=== PATIENT | female | born 1960 ===

== ENCOUNTER 2020-12-26 08:59 | Outpatient (CLI) | payer OTHER | END 2020-12-26 09:04 | disposition home or self-care (01) | LOC: NUCLEAR 08:59 | PROVIDERS: ATTEND Specialist | DX: R19.09 Other intra-abdominal and pelvic swelling, mass and lump (principal) | CPT/HCPCS: 78816; A9552 ==

== ENCOUNTER 2021-02-08 13:42 | Outpatient (CLI) | payer OTHER | END 2021-02-08 13:52 | disposition home or self-care (01) | LOC: RAD 13:42 | PROVIDERS: ATTEND Specialist | DX: I10 Essential (primary) hypertension (principal); R10.83 Colic ==

== ENCOUNTER 2021-02-12 08:15 | Inpatient (IN) | payer OTHER ==
[~2021-02-12] VITALS: Ht 162.6 cm; Wt 91.6 kg
[2021-02-13] MEDS ORDERED: DIOVAN160 M1 PO (09:42)
[2021-02-13] MEDS ORDERED: TOPROL XL100 M1 PO (09:42)
== END 2021-02-16 10:04 | disposition home or self-care (01) | DRG 828 ==
LOC: OB/GYN 02-13 08:15 → O/R 02-13 11:01 → OB/GYN 02-13 11:01
PROVIDERS: Surgery; ADMIT Specialist; ATTEND Specialist
PROC: 0WBF0ZZ Excision of Abdominal Wall, Open Approach (ICD-10-PCS; principal; 2021-02-13 11:30)
PROC: 0JX80ZC Transfer Abdomen Subcutaneous Tissue and Fascia with Skin, Subcutaneous Tissue and Fascia, Open Approach (ICD-10-PCS; 2021-02-13 11:30)
DX: C79.89 Secondary malignant neoplasm of other specified sites (principal); C79.2 Secondary malignant neoplasm of skin; C54.1 Malignant neoplasm of endometrium; R19.00 Intra-abdominal and pelvic swelling, mass and lump, unspecified site; I10 Essential (primary) hypertension; E03.9 Hypothyroidism, unspecified